=== PATIENT | male | born 1980 | race African-American/Black ===

== ENCOUNTER 2017-12-27 16:25 | Emergency (ER) | payer OTHER ==
[~2017-12-27] VITALS: Ht 170.2 cm; Wt 84.0 kg
[~2017-12-27 16:25] MED LIST: OMNI1SUS EACH EYE
[2017-12-27 16:29] VITALS: BP 131/79; PULSE 100; RESP 23; TEMP 98.4; O2SAT 95
[2017-12-27] MEDS ORDERED: SODIUM CHLOR 0.9% 1000 ML INJ 1,000 ML IV SCH (17:17)
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
[2017-12-27] MEDS ORDERED: HYDROmorphone HCL PF 1 MG/ML VIAL IVS ONE (17:30)
[2017-12-27] MEDS ORDERED: ONDANSETRON HCL 4 MG/2 ML VIAL IVP ONE (17:30)
[2017-12-27 17:45] VITALS: O2SAT 98
[2017-12-27] MEDS ORDERED: MORPHINE SULFATE 4 MG/ML INJ IV PUSH ONE (17:45)
[2017-12-27 17:54] LABS: AUTOMATED NEUTROPHIL # 7.7 TH/MM3 (1.8-7.7); BASOPHIL % 0.3 % (0.0-2.0); EOSINOPHIL % 0.1 % (0.0-4.0); HEMATOCRIT 41.3 % (39.0-51.0); HEMOGLOBIN 14.4 GM/DL (13.0-17.0); LYMPH % 20.7 % (9.0-44.0); LYMPHOCYTE # 2.3 TH/MM3 (1.0-4.8); MEAN CELL VOLUME 98.2 FL (80.0-100.0); MEAN CORPUSCULAR HEMOGLOBIN 34.3 PG (27.0-34.0); MEAN CORPUSCULAR HGB CONC 34.9 % (32.0-36.0); MONO % 9.4 % (0.0-8.0); NEUT % 69.5 % (16.0-70.0); PLATELET COUNT 319 TH/MM3 (150-450); RED CELL DISTRIBUTION WIDTH 12.8 % (11.6-17.2)
[2017-12-27 18:04] LABS: INTERNATIONAL NORMALIZED RATIO 1.1 RATIO; PROTHROMBIN TIME - PATIENT 11.4 SEC (9.8-11.6)
[2017-12-27 18:16] LABS: ALT (GPT) 42 U/L (12-78)
[2017-12-27 18:17] LABS: ALKALINE PHOSPHATASE 120 U/L (45-117); TOTAL BILIRUBIN ADULT 0.6 MG/DL (0.2-1.0); TOTAL PROTEIN 7.9 GM/DL (6.4-8.2)
[2017-12-27 18:29] LABS: ALBUMIN 4.1 GM/DL (3.4-5.0); AST (GOT) 58 U/L (15-37); BICARBONATE 25.8 MEQ/L (21.0-32.0); BLOOD UREA NITROGEN 11 MG/DL (7-18); CALCIUM 9.6 MG/DL (8.5-10.1); CHLORIDE 105 MEQ/L (98-107); CREATININE 1.24 MG/DL (0.60-1.30); GLOMERULAR FILTRATION RATE 80 ML/MIN (>89); GLUCOSE,RANDOM 112 MG/DL (74-106); SODIUM (NA) 137 MEQ/L (136-145)
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
[2017-12-27] MEDS ORDERED: IOHEXOL 350 MG/ML 10 ML VIAL (for RAD DIAG) IVCONTRAST ONE (18:54)
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
[2017-12-27] MEDS ORDERED: HYDR-3366 PO (19:10)
[2017-12-27 19:14] VITALS: BP 138/74; PULSE 92; RESP 16; O2SAT 98
== END 2017-12-27 19:40 | disposition home or self-care (01) ==
LOC: NEPD 16:25
DX: S27.321A Contusion of lung, unilateral, initial encounter (principal); V27.2XXA Unspecified motorcycle rider injured in collision with fixed or stationary object in nontraffic accident, initial encounter
CPT/HCPCS: 71260; 72040; 72100; 72170; 74177; 80053; 85025; 85610; 85730; 96361; 96374; 96375; 99285; J2270; J2405; J7030; Q9967